=== PATIENT | female | born 1995 | race Caucasian/White ===

== ENCOUNTER 2017-06-19 18:04 | Emergency (ER) | payer SELFPAY ==
[~2017-06-19] VITALS: Ht 175.3 cm; Wt 113.5 kg
[~2017-06-19 18:04] MED LIST: OXYC-360 PO
[2017-06-19 18:05] VITALS: BP 140/94; PULSE 111; RESP 20; TEMP 99.1; O2SAT 98
[2017-06-19 19:06] LABS: AUTOMATED NEUTROPHIL # 9.6 TH/MM3 (1.8-7.7); BASOPHIL % 0.3 % (0.0-2.0); EOSINOPHIL # 0.1 TH/MM3 (0-0.4); EOSINOPHIL % 0.6 % (0.0-4.0); HEMATOCRIT 38.8 % (35.0-46.0); HEMO FLAGS DIFF FINAL; LYMPH % 23.3 % (9.0-44.0); LYMPHOCYTE # 3.2 TH/MM3 (1.0-4.8); MEAN CELL VOLUME 87.8 FL (80.0-100.0); MEAN CORPUSCULAR HEMOGLOBIN 29.1 PG (27.0-34.0); MEAN CORPUSCULAR HGB CONC 33.2 % (32.0-36.0); MONO % 5.7 % (0.0-8.0); NEUT % 70.1 % (16.0-70.0); PLATELET COUNT 286 TH/MM3 (150-450); RED BLOOD COUNT 4.42 MIL/MM3 (4.00-5.30); RED CELL DISTRIBUTION WIDTH 14.2 % (11.6-17.2); WHITE BLOOD COUNT 13.8 TH/MM3 (4.0-11.0)
[2017-06-19 19:19] LABS: BICARBONATE 26.5 MEQ/L (21.0-32.0); POTASSIUM 3.8 MEQ/L (3.5-5.1)
[2017-06-19 19:20] LABS: APTT (PATIENT) 28.4 SEC (24.3-30.1)
--- NOTE | 2017-06-19 19:35 | PD ---
HPI Chief Complaint: Edema Time Seen by Provider: 19:10 Travel History International Travel<30 days: No Contact w/Intl Traveler<30days: No Traveled to known affect area: No History of Present Illness HPI 21-year-old female presents to the emergency room for evaluation of bilateral anterior, proximal lower extremities for the past week. Onset was after a long day at work. There is no direct trauma or injury. States it is progressively getting worse every day. Pain is worsened with range of motion and ambulation. Improves with rest. She has been taking a large amount of ibuprofen for significant relief. States she had to stop taking the ibuprofen because it was making her sick. She denies any recent immobilization, surgeries, history of DVT or PE, exogenous estrogen, history of cancer. Patient denies any other chronic medical conditions or daily medications. PFSH Past Medical History Developmental Delay: No Diminished Hearing: No Respiratory: Yes (RECURRENT BRONCHITIS MOST YEARS) Immunizations Current: Yes : 1 Para: 0 Miscarriage: 0 : 0 Social History Alcohol Use: No Tobacco Use: No Substance Use: No Allergies-Medications (Allergen,Severity, Reaction): Coded Allergies: No Known Allergies (Verified , 05/06/13) Reported Meds & Prescriptions Reported Meds & Active Scripts Active Ibuprofen 600 Mg Tab 600 Mg PO Q8HR PRN Robaxin (Methocarbamol) 750 Mg Tab 750 Mg PO Q8HR Review of Systems Except as stated in HPI: all other systems reviewed are Neg Physical Exam Narrative GENERAL: Well-nourished, morbidly obese female in no acute distress. Afebrile. Ambulatory. SKIN: Focused skin assessment warm/dry. HEAD: Normocephalic. EYES: No scleral icterus. No injection or drainage. NECK: Supple, trachea midline. No JVD or lymphadenopathy. CARDIOVASCULAR: Regular rate and rhythm without murmurs, gallops, or rubs. RESPIRATORY: Breath sounds equal bilaterally. No accessory muscle use. GASTROINTESTINAL: Abdomen soft, non-tender, nondistended. MUSCULOSKELETAL: No cyanosis. No obvious edema of the bilateral lower extremities. 2+ dorsalis pedis pulses are equal bilaterally. Full range of motion but with pain. No bony tenderness to palpation. Moderate tenderness to palpation of bilateral calves. Data Data Last Documented VS Vital Signs Date Time Temp Pulse Resp B/P (MAP) Pulse Ox O2 Delivery O2 Flow Rate FiO2 06/19/17 20:01 98 20 135/70 (91) 100 Room Air 06/19/17 18:05 99.1 Orders Orders Complete Blood Count With Diff (06/19/17 18:15) Basic Metabolic Panel (Bmp) (06/19/17 18:15) Coag Profile (06/19/17 18:15) Ed Urine Pregnancytest Poc (06/19/17 19:07) Us Leg Venous Doppler Bilat (06/19/17 ) Ed Discharge Order (06/19/17 20:46) Labs Laboratory Tests Test 06/19/17 18:20 White Blood Count 13.8 TH/MM3 Red Blood Count 4.42 MIL/MM3 Hemoglobin 12.9 GM/DL Hematocrit 38.8 % Mean Corpuscular Volume 87.8 FL Mean Corpuscular Hemoglobin 29.1 PG Mean Corpuscular Hemoglobin Concent 33.2 % Red Cell Distribution Width 14.2 % Platelet Count 286 TH/MM3 Mean Platelet Volume 7.8 FL Neutrophils (%) (Auto) 70.1 % Lymphocytes (%) (Auto) 23.3 % Monocytes (%) (Auto) 5.7 % Eosinophils (%) (Auto) 0.6 % Basophils (%) (Auto) 0.3 % Neutrophils # (Auto) 9.6 TH/MM3 Lymphocytes # (Auto) 3.2 TH/MM3 Monocytes # (Auto) 0.8 TH/MM3 Eosinophils # (Auto) 0.1 TH/MM3 Basophils # (Auto) 0.0 TH/MM3 CBC Comment DIFF FINAL Differential Comment Prothrombin Time 11.0 SEC Prothromb Time International Ratio 1.0 RATIO Activated Partial Thromboplast Time 28.4 SEC Blood Urea Nitrogen 15 MG/DL Creatinine 0.75 MG/DL Random Glucose 73 MG/DL Calcium Level 9.2 MG/DL Sodium Level 137 MEQ/L Potassium Level 3.8 MEQ/L Chloride Level 105 MEQ/L Carbon Dioxide Level 26.5 MEQ/L Anion Gap 6 MEQ/L Estimat Glomerular Filtration Rate 97 ML/MIN [facility] Medical Decision Making Medical Screen Exam Complete: Yes Emergency Medical Condition: Yes Medical Record Reviewed: Yes Differential Diagnosis DVT unlikely, muscle strength, muscle spasm Narrative Course 21-year-old female presents to the emergency room for evaluation of bilateral lower extremity pain and swelling for the past week. Progressively getting worse every day. Denies trauma or injury. No risk factors for DVT. No shortness of breath. Vital signs stable. Physical exam is unremarkable. There is no edema. She has full range of motion bilaterally read patient is a mandatory. 2+ dorsalis pedis pulses bilaterally. CBC and BMP are essentially unremarkable. Ultrasound bilateral lower extremities is negative. I suspect muscle spasm or strain. Patient was told to follow-up the primary care physician in one week if symptoms persist for outpatient, repeat ultrasound. She was told to return for worsening symptoms. She understands and agrees to plan. Diagnosis Primary Impression: Bilateral leg pain Referrals: Primary Care Physician Additional Instructions: Rest and drink plenty of fluids. Take Robaxin as directed, as needed for pain. Take ibuprofen with food as directed, as needed for pain. Apply ice to the affected area for 20 minutes at a time, as needed for pain and swelling. Follow-up with a primary care physician. Return to the emergency room for worsening symptoms. Med/Other Pt SpecificInfo: Prescription(s) given Scripts Ibuprofen (Ibuprofen) 600 Mg Tab 600 MG PO Q8HR Y for PAIN, #12 TAB 0 Refills Prov: Janet Mcgee DO 06/19/17 Methocarbamol (Robaxin) 750 Mg Tab 750 MG PO Q8HR for Muscle Spasm, #15 TAB 0 Refills Prov: Janet Mcgee DO 06/19/17 Disposition: 01 DISCHARGE HOME Condition: Stable Bhavana Mooney Jun 19, 2017 19:34
[2017-06-19 20:01] VITALS: BP 135/70; PULSE 98; RESP 20; O2SAT 100
--- NOTE | 2017-06-19 20:44 | RADRPT ---
EXAM DATE/TIME: 06/19/2017 20:00 [place] COMPARISON: No previous studies available for comparison. INDICATIONS : Bilateral leg swelling. MEDICAL HISTORY : . Bronchitis. SURGICAL HISTORY : None. ENCOUNTER: Initial ACUITY: 1 week PAIN SCORE: 8/10 LOCATION: Bilateral legs. TECHNIQUE: Venous ultrasound of the left and right leg was performed from the inguinal ligament to the proximal calf. Real-time, color Doppler and spectral tracing, compression and augmentation techniques were us ed. FINDINGS: RIGHT LEG: There is normal compressibility of the deep venous system from the inguinal region to the proximal ca lf. No echogenic clot is seen in the lumen of the common femoral, femoral, popliteal, and posterior tibial veins. There is a normal response of the venous system to proximal and distal augmentation an d respiration. LEFT LEG: There is normal compressibility of the deep venous system from the inguinal region to the proximal ca lf. No echogenic clot is seen in the lumen of the common femoral, femoral, popliteal, and posterior tibial veins. There is a normal response of the venous system to proximal and distal augmentation an d respiration. CONCLUSION: No DVT. Soy Cortez MD on June 19, 2017 at 20:42 Board Certified Radiologist. This report was verified electronically.
[2017-06-19] MEDS ORDERED: IBUP-232 PO (20:47)
[2017-06-19] MEDS ORDERED: ROBA750T PO (20:47)
[2017-06-19] MEDS ORDERED: METHOCARBAMOL 500 MG TAB PO ONE (21:00)
== END 2017-06-19 23:25 | disposition home or self-care (01) ==
LOC: NEPD 18:04
DX: M79.605 Pain in left leg (principal); M79.604 Pain in right leg; M79.89 Other specified soft tissue disorders
CPT/HCPCS: 80048; 84703; 85025; 85610; 85730; 93970; 99285

== ENCOUNTER 2017-09-08 11:11 | Emergency (ER) | payer SELFPAY ==
[~2017-09-08 11:11] MED LIST changes: +IBUP-232 PO; -OXYC-360 PO; +ROBA750T PO
[2017-09-08 11:13] VITALS: BP 129/93; PULSE 77; RESP 18; TEMP 97.9; O2SAT 100
[2017-09-08 12:25] LABS: BACTERIA, URINE RARE /hpf; BILIRUBIN, URINE NEG (NEG); BLOOD, URINE NEG (NEG); GLUCOSE,URINE NEG (NEG); KETONE, URINE NEG (NEG); MUCUS URINE MOD /lpf (OCC); NITRITE,URINE NEG (NEG); SQUAMOUS EPITHELIAL CELL URINE 7 /hpf (0-5); URINE COLOR YELLOW (YELLW/STRAW); URINE LEUKOCYTE ESTERASE SMALL (NEG)
[2017-09-08] MEDS ORDERED: LIDOCAINE HCL 1% 50 ML VIAL IM ONE (13:00)
[2017-09-08] MEDS ORDERED: AZITHROMYCIN PWD FOR SUSP 1 GM PACKET PO ONE (13:00)
[2017-09-08] MEDS ORDERED: cefTRIAXone 250 MG VIAL IM ONE (13:00)
--- NOTE | 2017-09-08 13:03 | PD ---
HPI Chief Complaint: Complaint Time Seen by Provider: 12:18 Travel History International Travel<30 days: No Contact w/Intl Traveler<30days: No History of Present Illness HPI 21 YO F presents to the ED for evaluation of 1 week history of lower abdominal discomfort, vaginal discharge. She denies fevers, chills, nausea, vomiting, changes in bowel habits, dysuria, vaginal itching. She states that the discharge is thick, pink tinged and foul-smelling. She denies fishy smelling odor. She endorses single incident of unprotected sex with a male partner. States LMP 10 days ago. She endorses tubal ligation. PFSH Past Medical History Developmental Delay: No Diminished Hearing: No Respiratory: Yes (RECURRENT BRONCHITIS MOST YEARS) Immunizations Current: Yes ?: Not LMP: salpingectomy : 1 Para: 0 Miscarriage: 0 : 0 Past Surgical History Abdominal Surgery: Yes () Section: Yes Social History Alcohol Use: Yes Tobacco Use: No Substance Use: No Allergies-Medications (Allergen,Severity, Reaction): Coded Allergies: No Known Allergies (Verified Adverse Reaction, Unknown, 09/08/17) Reported Meds & Prescriptions Reported Meds & Active Scripts Active Review of Systems Except as stated in HPI: all other systems reviewed are Neg Physical Exam Narrative GENERAL: Well-nourished, well-developed white female in no acute distress. SKIN: Focused skin assessment warm/dry. HEAD: Normocephalic. EYES: No scleral icterus. No injection or drainage. NECK: Supple, trachea midline. No JVD or lymphadenopathy. CARDIOVASCULAR: Regular rate and rhythm without murmurs, gallops, or rubs. RESPIRATORY: Breath sounds clear and equal bilaterally. No accessory muscle use. GASTROINTESTINAL: Abdomen soft, non-tender, nondistended. Active bowel sounds. MUSCULOSKELETAL: No cyanosis, or edema. BACK: Nontender without obvious deformity. No CVA tenderness. Data Data Last Documented VS Vital Signs Date Time Temp Pulse Resp B/P (MAP) Pulse Ox O2 Delivery O2 Flow Rate FiO2 09/08/17 13:52 09/08/17 11:13 97.9 77 18 100 Orders Orders Urinalysis - C+S If Indicated (09/08/17 11:22) Gc And Chlamydia Pcr (09/08/17 11:22) Ceftriaxone Inj (Rocephin Inj) (09/08/17 13:00) Ed Discharge Order (09/08/17 13:04) Azithromycin (Zithromax) (09/08/17 13:15) Lidocaine Pf 1% Inj (Xylocaine-Mpf 1% In (09/08/17 13:30) Labs Laboratory Tests Test 09/08/17 12:00 Urine Color YELLOW Urine Turbidity CLEAR Urine pH 7.0 Urine Specific [place] 1.032 Urine Protein 30 mg/dL Urine Glucose (UA) NEG mg/dL Urine Ketones NEG mg/dL Urine Occult Blood NEG Urine Nitrite NEG Urine Bilirubin NEG Urine Urobilinogen 2.0 MG/DL Urine Leukocyte Esterase SMALL Urine RBC LESS THAN 1 /hpf Urine WBC 4 /hpf Urine Squamous Epithelial Cells 7 /hpf Urine Bacteria RARE /hpf Urine Mucus MOD /lpf Microscopic Urinalysis Comment CULT NOT INDICATED Chlamydia trachomatis DNA (PCR) DETECTED Neisseria gonorrhoeae DNA (PCR) NOT DETECTED MDM Medical Decision Making Medical Screen Exam Complete: Yes Emergency Medical Condition: Yes Differential Diagnosis UTI versus chlamydia versus gonorrhea versus other Narrative Course 21 YO F presents to the ED for evaluation of 1 week history of lower abdominal discomfort, vaginal discharge. She denies fevers, chills, nausea, vomiting, changes in bowel habits, dysuria, vaginal itching. She states that the discharge is thick, pink tinged and foul-smelling. She denies fishy smelling odor. She endorses single incident of unprotected sex with a male partner. States LMP 10 days ago. She endorses tubal ligation. Patient afebrile on presentation. Physical exam is unremarkable. I offered the patient a pelvic exam which she declines at this time. UA without signs of infection. GC and chlamydia pending. Patient agrees to empirical treatment for gonorrhea and chlamydia. This was administered. Patient's instructed to follow-up with the health department for full battery of STD testing as well as test of cure, stained from sex until test of cure is proven, return to the ED for worsening symptoms. She indicated understanding of the instructions and is agreeable to the care plan. The patient is stable and discharged home. Diagnosis Primary Impression: Vaginal discharge Referrals: [facility] Dept. Patient Instructions: General Instructions, Safe Sex (ED), Sexually Transmitted Diseases (ED) Additional Instructions: Rest, hydrate. Abstain from sex until test of cure is performed at the Health Department. Follow-up with Health Department for test of cure and full STD screening. The health department can also perform a well woman check up and Pap smear. Return to the ED for worsening symptoms or any urgent or emergent medical condition. Disposition: 01 DISCHARGE HOME Condition: Stable Kaylah Carney Sep 08, 2017 13:03
[2017-09-08] MEDS ORDERED: AZITHROMYCIN 250 MG TAB PO ONE (13:15)
[2017-09-08] MEDS ORDERED: LIDOCAINE HCL 1% PF 30 ML VIAL INFIL ONE (13:30)
== END 2017-09-08 13:52 | disposition home or self-care (01) ==
LOC: NEPK 11:11
DX: N89.8 Other specified noninflammatory disorders of vagina (principal)
CPT/HCPCS: 81001; 87491; 87591; 96372; 99283; J0696

== ENCOUNTER 2017-10-07 11:32 | Emergency (ER) | payer SELFPAY ==
[~2017-10-07] VITALS: Ht 175.3 cm; Wt 111.8 kg
[2017-10-07 11:39] VITALS: BP 135/81; PULSE 84; RESP 16; TEMP 98.4; O2SAT 98
--- NOTE | 2017-10-07 12:15 | PD ---
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 The patient has similar symptoms 1 month ago with a discharge, had a UA gonorrhea and chlamydia PCR which was positive for chlamydia. The patient states she took Zithromax, however, drink alcohol that night and thinks this may have interfered with the results. She continues to have lower abdominal discomfort, does note intermittent physiologic discharge. Last menstrual cycle was 1 week ago, denies with history of tubal ligation. She denies any nausea, vomiting, or upper abdominal pain. She denies any dysuria, frequency, urgency, or hematuria. She also complains of a sore throat. She denies any significant nasal drainage or congestion. Symptoms are moderate. There are no alleviating or exacerbating factors. PFSH Past Medical History Developmental Delay: No Diminished Hearing: No Respiratory: Yes (RECURRENT BRONCHITIS MOST YEARS) Immunizations Current: Yes Influenza Vaccination: Yes ?: Not LMP: TUBAL LIGATION : 1 Para: 0 Miscarriage: 0 : 0 Past Surgical History Abdominal Surgery: Yes () Section: Yes Social History Alcohol Use: Yes Tobacco Use: No Substance Use: No Allergies-Medications (Allergen,Severity, Reaction): Coded Allergies: No Known Allergies (Verified Adverse Reaction, Unknown, 10/07/17) Reported Meds & Prescriptions Reported Meds & Active Scripts Active No Active Prescriptions or Reported Medications Review of Systems Except as stated in HPI: all other systems reviewed are Neg General / Constitutional: No: Fever HENT: Positive: Sore Throat, No: Congestion Gastrointestinal: No: Nausea, Vomiting, Diarrhea, Abdominal Pain Genitourinary: Positive: Pelvic Pain, Discharge, No: Urgency, Frequency, Dysuria, Hematuria, Flank Pain, Vaginal Bleeding Skin: No Rash Physical Exam Narrative GENERAL: Awake, alert, pleasant 21-year-old female who appears her stated age is in no acute respiratory distress. SKIN: Focused skin assessment warm/dry. HEAD: Atraumatic. Normocephalic. EYES: Pupils equal and round. No scleral icterus. No injection or drainage. ENT: No nasal bleeding or discharge. Posterior oropharynx reveals cobblestoning but no significant exudate. NECK: Trachea midline. No JVD. No cervical lymphadenopathy noted. GASTROINTESTINAL: Abdomen soft, non-tender, nondistended. No rebound tenderness , guarding, rigidity. No suprapubic tenderness. Back: No CVA tenderness. Genitourinary: Deferred MUSCULOSKELETAL: No obvious deformities. No clubbing. No cyanosis. No edema. NEUROLOGICAL: Awake and alert. No obvious cranial nerve deficits. Motor grossly within normal limits. Normal speech. PSYCHIATRIC: Appropriate mood and affect; insight and judgment normal. Data Data Last Documented VS Vital Signs Date Time Temp Pulse Resp B/P (MAP) Pulse Ox O2 Delivery O2 Flow Rate FiO2 10/07/17 11:39 98.4 84 16 135/81 (99) 98 Orders Orders Gc And Chlamydia Pcr (10/07/17 12:03) Wet Prep Profile (10/07/17 12:03) Urinalysis - C+S If Indicated (10/07/17 12:03) Ed Urine Pregnancytest Poc (10/07/17 12:04) Group A Rapid Strep Screen (10/07/17 12:11) Azithromycin Powd Pack (Zithromax Powd P (10/07/17 12:45) Ceftriaxone Inj (Rocephin Inj) (10/07/17 12:45) Lidocaine 1% Inj (50 Ml) (Xylocaine 1% I (10/07/17 12:45) Strep Culture (Group A) (10/07/17 12:00) Ed Discharge Order (10/07/17 12:54) Labs Laboratory Tests Test 10/07/17 12:00 Urine Collection Type CLEAN CATCH Urine Color YELLOW Urine Turbidity CLEAR Urine pH 7.5 Urine Specific [place] 1.020 Urine Protein NEG mg/dL Urine Glucose (UA) NEG mg/dL Urine Ketones NEG mg/dL Urine Occult Blood NEG Urine Nitrite NEG Urine Bilirubin NEG Urine Urobilinogen 0.2 MG/DL Urine Leukocyte Esterase NEG Urine WBC 0-2 /hpf Urine Squamous Epithelial Cells 0-5 /hpf Microscopic Urinalysis Comment CULT NOT INDICATED Urine Collection Time 12:00 Clue Cells (Wet Prep) NONE SEEN Vaginal Trichomonas (Wet Prep) NONE SEEN Vaginal Yeast (Wet Prep) NONE SEEN MDM Medical Decision Making Medical Screen Exam Complete: Yes Emergency Medical Condition: Yes Medical Record Reviewed: Yes Interpretation(s) Laboratory Tests Test 10/07/17 12:00 Urine Collection Type CLEAN CATCH Urine Color YELLOW Urine Turbidity CLEAR Urine pH 7.5 Urine Specific [place] 1.020 Urine Protein NEG mg/dL Urine Glucose (UA) NEG mg/dL Urine Ketones NEG mg/dL Urine Occult Blood NEG Urine Nitrite NEG Urine Bilirubin NEG Urine Urobilinogen 0.2 MG/DL Urine Leukocyte Esterase NEG Urine WBC 0-2 /hpf Urine Squamous Epithelial Cells 0-5 /hpf Microscopic Urinalysis Comment CULT NOT INDICATED Urine Collection Time 12:00 Clue Cells (Wet Prep) NONE SEEN Vaginal Trichomonas (Wet Prep) NONE SEEN Vaginal Yeast (Wet Prep) NONE SEEN Date/Time Source Procedure Growth Status 10/07/17 12:00 Throat Group A Streptococcus Screen Pending Received 10/07/17 12:00 Throat Group A Streptococcus Screen ([facility]) - Final Complete Differential Diagnosis Differential diagnosis includes vaginitis, cervicitis, PID, UTI, , ectopic , strep pharyngitis, postnasal drip. Narrative Course I reviewed the patient's EMR, last visit was on September 08, she did have urine PCR that was positive for chlamydia. Plan UA PCR for gonorrhea and Chlamydia were sent to lab. Strep screen is negative. UA is unremarkable. Wet prep is negative. Patient states she may have chlamydia once again, states she was drinking alcohol after her last antibiotics. She requests treatment, therefore , was administered Rocephin 250 mg IM and Zithromax 1 g p.o. She is advised to follow-up with gynecology if symptoms persist as she may need formal pelvic examination which she defers in the emergency department and possible ultrasound after pelvic examination. Patient agrees and understands. She is stable for outpatient follow-up. Bedside urine test is negative. Strep screen is negative. Diagnosis Primary Impression: Pelvic pain in female Patient Instructions: General Instructions Additional Instructions: Follow-up with a primary physician and her advanced practice provider. Return if symptoms worsen or progress. Med/Other Pt SpecificInfo: No Change to Meds Scripts No Active Prescriptions or Reported Meds Disposition: 01 DISCHARGE HOME Condition: Stable Braden Andujar MD Oct 07, 2017 12:15
[2017-10-07 12:25] LABS: BILIRUBIN, URINE NEG (NEG); BLOOD, URINE NEG (NEG); GLUCOSE,URINE NEG (NEG); KETONE, URINE NEG (NEG); NITRITE,URINE NEG (NEG); PH, URINE 7.5 (5.0-8.5); URINE COLOR YELLOW (YELLW/STRAW); URINE LEUKOCYTE ESTERASE NEG (NEG)
[2017-10-07 12:30] LABS: SQUAMOUS EPITHELIAL CELL URINE 0-5 /hpf (0-5); WBC, URINE 0-2 /hpf (0-5)
[2017-10-07] MEDS ORDERED: LIDOCAINE HCL 1% 50 ML VIAL IM ONE (12:45)
[2017-10-07] MEDS ORDERED: cefTRIAXone 250 MG VIAL IM ONE (12:45)
[2017-10-07] MEDS ORDERED: AZITHROMYCIN PWD FOR SUSP 1 GM PACKET PO ONE (12:45)
== END 2017-10-07 13:24 | disposition home or self-care (01) ==
LOC: PHED 11:32
DX: R10.2 Pelvic and perineal pain (principal)
CPT/HCPCS: 81001; 84703; 87081; 87210; 87491; 87591; 87880; 96372; 99283; J0696

== ENCOUNTER 2017-12-14 16:27 | Emergency (ER) | payer SELFPAY ==
[2017-12-14 16:31] VITALS: BP 166/97; PULSE 89; RESP 16; TEMP 98.4; O2SAT 99
[2017-12-14] MEDS ORDERED: CLIN300C5 PO (17:16)
--- NOTE | 2017-12-14 17:17 | PD ---
HPI Chief Complaint: Skin Problem Time Seen by Provider: 17:08 Travel History International Travel<30 days: No Contact w/Intl Traveler<30days: No Traveled to known affect area: No History of Present Illness HPI This is a 22-year-old female here with a possible skin infection to her right wrist at the site of a new tattoo. She had a new tattoo to the right breast 4 days ago. 2 days ago she noticed the area became increasingly more painful with surrounding erythema. Denies fever chills. Symptom severity is mild to moderate. No aggravating or alleviating factors. PFSH Past Medical History Developmental Delay: No Diminished Hearing: No Respiratory: Yes (RECURRENT BRONCHITIS MOST YEARS) Immunizations Current: Yes ?: Not LMP: CURRENT : 1 Para: 0 Miscarriage: 0 : 0 Past Surgical History Abdominal Surgery: Yes () Section: Yes Social History Alcohol Use: Yes Tobacco Use: No Substance Use: No Allergies-Medications (Allergen,Severity, Reaction): Coded Allergies: No Known Allergies (Verified Adverse Reaction, Unknown, 12/14/17) Reported Meds & Prescriptions Reported Meds & Active Scripts Active No Active Prescriptions or Reported Medications Review of Systems Except as stated in HPI: all other systems reviewed are Neg General / Constitutional: No: Fever Physical Exam Narrative GENERAL: Alert and well-appearing 22-year-old female SKIN: Warm and dry. New appearing tattoo to the right wrist volar aspect with 1.5 cm area of surrounding erythema. There is no induration or fluctuance. No lymphangitis. No open areas. No drainage from the tattoo HEAD: Normocephalic. EYES: No injection or drainage. NECK: Supple CARDIOVASCULAR: Regular rate and rhythm RESPIRATORY: Breath sounds equal bilaterally. No accessory muscle use. GASTROINTESTINAL: Abdomen soft, non-tender, nondistended. MUSCULOSKELETAL: No cyanosis, or edema. Right upper extremity: See skin note above. No bony tenderness. No joint involvement. Palpable radial pulse. Brisk cap refill. Data Data Last Documented VS Vital Signs Date Time Temp Pulse Resp B/P (MAP) Pulse Ox O2 Delivery O2 Flow Rate FiO2 12/14/17 16:31 98.4 89 16 166/97 (120) 99 MDM Medical Decision Making Medical Screen Exam Complete: Yes Emergency Medical Condition: Yes Differential Diagnosis Cellulitis, localized reaction to tattoo dye, abscess Narrative Course 22-year-old female here with mild skin infection at the site of a new tattoo. She will be treated with clindamycin. Wound care was discussed. Patient verbalized understanding and agrees to plan Diagnosis Primary Impression: Cellulitis Qualified Codes: L03.90 - Cellulitis, unspecified Referrals: Primary Care Physician Departure Forms: School Release, Return to School Date: December 16, 2017 Tests/Procedures Additional Instructions: Antibiotics as directed. Apply thin layer of bacitracin ointment to the area. Return if you have new or worsening symptoms. Scripts Clindamycin (Clindamycin) 300 Mg Cap 300 MG PO Q6H for Infection for 10 Days, #40 CAP 0 Refills Prov: Jimena Reyes 12/14/17 Disposition: 01 DISCHARGE HOME Condition: Stable Jimena Reyes December 14, 2017 17:17
== END 2017-12-14 17:20 | disposition home or self-care (01) ==
LOC: PHEFT 16:27
DX: L03.113 Cellulitis of right upper limb (principal)
CPT/HCPCS: 99283